=== PATIENT | male | born 1995 | race Caucasian/White ===

== ENCOUNTER 2018-04-03 04:04 | Emergency (ER) | payer OTHER ==
[~2018-04-03] VITALS: Ht 177.8 cm; Wt 65.8 kg
[~2018-04-03 04:04] MED LIST: BACTRIM DS TAB1 EACH PO; FLEXERIL PO; NOHOMEMEDICATIONS; NORCO 5-325 TA1 EACH PO; PHENERGAN 25 MG25 M1 PO; TESSALON PERLE100 MG PO; ZPAK PO
[2018-04-03 04:47] LABS: ABSOLUTE BASOPHILS 0.1 thou/uL (0.0-0.2); ABSOLUTE EOSINOPHILS 0.1 thou/uL (0.0-0.7); ABSOLUTE LYMPHOCYTES 1.5 thou/uL (0.8-5.3); ABSOLUTE MONOCYTES 0.6 thou/uL (0.0-1.2); ABSOLUTE NEUTROPHILS 6.7 thou/uL (1.6-8.1); EOSINOPHILS 1.3 %; HEMATOCRIT 49.1 % (42.0-52.0); HEMOGLOBIN 17.2 gm/dL (14.0-18.0); LYMPHOCYTES 16.7 %; MCV 88.4 fL (80.0-100.0); MONOCYTES 6.9 %; MPV 7.8 fl. (7.2-11.1); NUCLEATED RBCS 0 /100WBC; PLATELET COUNT* 229 thou/uL (150-400); POLYS 74.1 %; RBC 5.55 mil/uL (4.50-6.00); RDW-CV 12.9 % (10.5-14.5); WBC 9.1 thou/uL (4.0-11.0)
[2018-04-03 05:07] LABS: CALCIUM 8.6 mg/dL (8.5-10.1); CREATININE 0.9 mg/dL (0.6-1.3); POTASSIUM 3.2 mmol/L (3.5-5.1)
[2018-04-03 05:11] LABS: ALBUMIN 4.2 g/dL (3.4-5.0); TOTAL BILIRUBIN 0.9 mg/dL (<0.1-1.0); TOTAL PROTEIN 7.2 g/dL (6.4-8.2)
[2018-04-03] MEDS ORDERED: ONDANSETRON HCL4 M2 PO (05:44)
[2018-04-03 06:24] VITALS: BP 105/63
== END 2018-04-03 06:25 | disposition home or self-care (01) ==
LOC: M.ERS 04:04
PROVIDERS: Emergency Medicine
DX: R56.9 Unspecified convulsions (principal); R11.2 Nausea with vomiting, unspecified

== ENCOUNTER 2019-06-08 12:21 | Inpatient (IN) | payer OTHER ==
[~2019-06-08] VITALS: Ht 177.8 cm; Wt 64.8 kg
[~2019-06-08 12:21] MED LIST changes: +ONDANSETRON HCL4 M2 PO
[2019-06-08 12:30] VITALS: BP 123/79
[2019-06-08 12:55] LABS: ABSOLUTE BASOPHILS 0.1 thou/uL (0.0-0.2); ABSOLUTE EOSINOPHILS 0.2 thou/uL (0.0-0.7); ABSOLUTE LYMPHOCYTES 2.3 thou/uL (0.8-5.3); ABSOLUTE MONOCYTES 0.7 thou/uL (0.0-1.2); ABSOLUTE NEUTROPHILS 6.9 thou/uL (1.6-8.1); BASOPHILS 1.1 %; EOSINOPHILS 1.6 %; HEMATOCRIT 51.9 % (42.0-52.0); HEMOGLOBIN 18.4 gm/dL (14.0-18.0); LYMPHOCYTES 22.8 %; MCH 31.2 pg (26.0-34.0); MCHC 35.4 g/dL (28.0-37.0); MCV 88.2 fL (80.0-100.0); MONOCYTES 6.5 %; NUCLEATED RBCS 0 /100WBC; PLATELET COUNT* 286 thou/uL (150-400); RBC 5.89 mil/uL (4.50-6.00); RDW-CV 12.9 % (10.5-14.5); WBC 10.2 thou/uL (4.0-11.0)
[2019-06-08 13:04] LABS: CALCIUM 9.2 mg/dL (8.5-10.1); POTASSIUM 3.4 mmol/L (3.5-5.1)
[2019-06-08 13:17] LABS: TOTAL PROTEIN 8.1 g/dL (6.4-8.2)
[2019-06-08 13:35] LABS: APTT 25.3 Seconds (25.0-31.3); INR 1.1; PROTIME 11.4 Seconds (9.20-11.50)
[2019-06-08 14:03] LABS: URINE BILIRUBIN NEGATIVE (Negative); URINE BLOOD TRACE (Negative); URINE CLARITY CLEAR; URINE COLOR YELLOW; URINE GLUCOSE-RANDOM NEGATIVE (Negative); URINE KETONES NEGATIVE (Negative); URINE LEUKOCYTES-REFLEX NEGATIVE (Negative); URINE NITRITE-REFLEX NEGATIVE (Negative); URINE PROTEIN NEGATIVE (Negative); URINE SPECIFIC GRAVITY 1.015 (1.005-1.030); URINE UROBILINOGEN 0.2 E.U./dl (0.2-1.0)
[2019-06-08 14:10] LABS: AMP/METHAMP Negative (Negative); BARBITURATES Negative (Negative); BENZODIAZEPINES Negative (Negative); COCAINE Negative (Negative); METHADONE Negative (Negative); OPIATES Negative (Negative); PCP Negative (Negative); THC POSITIVE (Negative)
--- NOTE | 2019-06-08 14:35 | EKG ---
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1995 Requested By: Ramy York Order Number: [id number] MD: Aneesh Franklin Measurements Intervals [place] Rate: 68 P: 26 [place]: 178 QRS: 82 QRSD: 114 T: 64 QT: 394 QTc: 420 Interpretive Statements Sinus rhythm Incomplete right bundle branch block Compared to ECG 07/29/2014 13:06:36 Incomplete right bundle-branch block now present Electronically Signed On 06-08-2019 14:35:11 CDT by Aneesh Franklin [email or web address] <ELECTRONICALLY SIGNED> By: Aneesh Franklin MD, [facility] 06/08/19 1435 1248 1248 Aneesh Franklin MD, [facility] /EPI
[2019-06-08 16:00] VITALS: BP 118/72
[2019-06-08 16:04] VITALS: BP 116/60
--- NOTE | 2019-06-08 16:58 | 2DMMODE ---
[place] [address] 2 D/M-MODE ECHOCARDIOGRAM Name: KAVYA REINOSO Room: [address] IN [facility]#: [id number] Admission: 06/08/19 Attend Phys: Maximiliano Duarte Discharge: Date of : [birth year] Date of Service: 06/08/19 1658 Report #: [id number] THIS REPORT FOR: //name// APPROVED REPORT Study performed: 06/08/2019 16:12:58 EXAM: Comprehensive 2D, Doppler, and color-flow Echocardiogram Patient Location: In-Patient Room #: 200 Status: routine BSA: 1.82 HR: 65 bpm BP: 116/60 mmHg Rhythm: NSR Other Information Study Quality: Good Indications Syncope 2D Dimensions IVSd: 8.56 (7-11mm) LVOT Diam: 20.78 (18-24mm) LVDd: 43.05 mm PWd: 9.01 (7-11mm) Ascending Ao: 25.35 (22-36mm) LVDs: 26.92 (25-40mm) Aortic Root: 30.48 mm Volumes Left Atrial Volume (Systole) LA ESV Index: 25.70 mL/m2 Aortic Valve AoV Peak Ervin.: 1.19 m/s AO Peak Gr.: 5.70 mmHg LVOT Max P.77 mmHg AO Mean Gr.: 3.01 mmHg LVOT Mean P.69 mmHg LVOT Max V: 1.20 m/s AO V2 VTI: 21.95 cm LVOT Mean V: 0.75 m/s VIC (VTI): 3.64 cm2 LVOT V1 VTI: 23.55 cm Mitral Valve E/A Ratio: 2.19 MV Decel. Time: 232.06 ms MV E Max Ervin.: 0.90 m/[place] [address] 2 D/M-MODE ECHOCARDIOGRAM Name: KAVYA REINOSO Room: [address] IN .R.#: [id number] Admission: 06/08/19 Attend Phys: Maximiliano Duarte Discharge: Date of : 89 Date of Service: 06/08/19 1658 Report #: [id number] MV PHT: 67.30 ms MVA (PHT): 3.27 cm2 TDI E/Lateral E': 4.50 E/Medial E': 5.29 Medial E' Ervin.: 0.17 m/s Lateral E' Ervin.: 0.20 m/s Pulmonary Valve PV Peak Ervin.: 0.93 m/s PV Peak Gr.: 3.43 mmHg Tricuspid Valve RAP Estimate: 5.00 mmHg TR Peak Gr.: 14.05 mmHg RVSP: 19.00 mmHg PA Pressure: 19.00 mmHg Left Ventricle The left ventricle is normal size. There is normal LV segmental wall motion. There is normal left ventricular wall thickness. Left ventricular systolic function is normal. LVEF is 60-65%. The left ventricular diastolic function is normal. Right Ventricle The right ventricle is normal size. The right ventricular systolic function is normal. Atria The left atrium size is normal. The right atrium size is normal. Aortic Valve The aortic valve is normal in structure. No aortic regurgitation is present. There is no aortic valvular stenosis. Mitral Valve The mitral valve is normal in structure. There is no mitral valve regurgitation noted. No evidence of mitral valve stenosis. Tricuspid Valve The tricuspid valve is normal in structure. No pulmonary hypertension. Trace tricuspid regurgitation. Pulmonic Valve The pulmonary valve is normal in structure. [place] [address] 2 D/M-MODE ECHOCARDIOGRAM Name: KAVYA REINOSO Room: [address] IN [facility]#: [id number] Admission: 06/08/19 Attend Phys: Maximiliano Duarte Discharge: Date of : 89 Date of Service: 06/08/19 1658 Report #: [id number] Great Vessels The aortic root is normal in size. IVC is normal in size and collapses >50% with inspiration. Pericardium There is no pericardial effusion. <Conclusion> The left ventricle is normal size. There is normal left ventricular wall thickness. Left ventricular systolic function is normal. LVEF is 60-65%. The left ventricular diastolic function is normal. There is normal LV segmental wall motion. No pulmonary hypertension. Trace tricuspid regurgitation. IVC is normal in size and collapses >50% with inspiration. <ELECTRONICALLY SIGNED> By: Alberto Ahumada MD, FACC 06/08/19 1658 57 57 Alberto Ahumada MD, FACC /INF
[2019-06-08 20:00] VITALS: BP 129/72
[2019-06-08 23:53] VITALS: BP 96/54
[2019-06-09 03:45] VITALS: BP 100/51
[2019-06-09 04:44] LABS: MCH 30.4 pg (26.0-34.0); MCV 89.5 fL (80.0-100.0); MPV 7.8 fl. (7.2-11.1); RBC 5.26 mil/uL (4.50-6.00); RDW-CV 12.9 % (10.5-14.5); WBC 8.5 thou/uL (4.0-11.0)
[2019-06-09 05:11] LABS: ALBUMIN 3.7 g/dL (3.4-5.0); CALCIUM 8.6 mg/dL (8.5-10.1); CREATININE 0.9 mg/dL (0.6-1.3); POTASSIUM 4.3 mmol/L (3.5-5.1); TOTAL BILIRUBIN 0.7 mg/dL (<0.1-1.0)
[2019-06-09 08:00] VITALS: BP 113/80
[2019-06-09 08:12] VITALS: BP 113/80
--- NOTE | 2019-06-09 11:25 | EKG ---
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1995 Requested By: Maximiliano Duarte Order Number: [id number] Mable MD: Alberto Ahumada Measurements Intervals [place] Rate: 65 P: 59 [place]: 187 QRS: 88 QRSD: 113 T: 61 QT: 409 QTc: 426 Interpretive Statements Sinus rhythm Borderline intraventricular conduction delay ST elevation suggests early repolarization Compared to ECG 06/08/2019 12:48:53 ST (T wave) deviation now present Incomplete right bundle-branch block no longer present Electronically Signed On 06-09-2019 11:25:18 CDT by Alberto Ahumada [email or web address] <ELECTRONICALLY SIGNED> By: Alberto Ahumada MD, FACC 06/09/19 1125 16 16 Alberto Ahumada MD, FACC /EPI
[2019-06-09 11:40] VITALS: BP 111/65
[2019-06-09] MEDS ORDERED: IBUPROFEN 800800 M1 PO (13:07)
[2019-06-09 13:10] VITALS: BP 111/65
--- NOTE | 2019-06-09 15:24 | EKG ---
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1995 Requested By: Maximiliano Duarte Order Number: [id number] Mable MD: Alberto Ahumada Measurements Intervals [place] Rate: 55 P: 68 [place]: 166 QRS: 90 QRSD: 111 T: 71 QT: 400 QTc: 383 Interpretive Statements Sinus rhythm ST elevation, early repolarization Compared to ECG 06/08/2019 19:17:02 ST (T wave) deviation still present Electronically Signed On 06-09-2019 15:24:35 CDT by Alberto Ahumada [email or web address] <ELECTRONICALLY SIGNED> By: Alberto Ahumada MD, FACC 06/09/19 1524 1340 1340 Alberto Ahumada MD, [facility] /EPI
--- NOTE | 2019-06-10 14:24 | EEG ---
[facility] [address] [place] [address] EEG STUDY REPORT Name: KAVYA REINOSO Room: [address] IN M.R.#: [id number] Admission: 06/08/19 Attend Phys: Shereen Slade Discharge: 06/09/19 Date of : [birth year] Report #: [id number] THIS REPORT FOR: //name// CC: JASMIN physician/PCP Maximiliano Duarte DATE OF SERVICE: 06/08/2019 This patient is being evaluated for an episode of syncope. EEG was done by placing the electrode by standard 10-20 system of electrode placement. Both referential and sequential montages were used for recording. Background activity in this patient's EEG is about 11 Hz and 30 microvolt. Large portion of this patient's EEG was obtained when the patient was asleep. That is associated with bilaterally symmetrical sleep spindle and vertex sharp waves. Throughout the record, no active epileptiform activity was noticed. Photic stimulation was unremarkable. IMPRESSION: This patient's EEG was unremarkable. It might be mentioned that EEG can be normal in a significant percentage of patient with a seizure disorder. If clinically doubt exist about seizure disorder, then the patient will need further workup including prolonged EEG, video monitored EEG, etc., depending upon his condition. Thank you very much for this referral. <ELECTRONICALLY SIGNED> By: Marc Nice MD 06/10/19 1424 1122 [id number] Nice MD /michelle
== END 2019-06-09 14:30 | disposition home or self-care (01) | DRG 312 ==
LOC: M.ERS 12:21 → M.TBA-ER 14:11 → M.2W 15:56
PROVIDERS: Physician Assistant; ADMIT Internal Medicine
DX: R55 Syncope and collapse (principal); Z86.14 Personal history of Methicillin resistant Staphylococcus aureus infection; F17.210 Nicotine dependence, cigarettes, uncomplicated; I45.10 Unspecified right bundle-branch block; F12.90 Cannabis use, unspecified, uncomplicated; E87.6 Hypokalemia

== ENCOUNTER 2020-03-02 17:36 | Emergency (ER) | payer OTHER ==
[~2020-03-02] VITALS: Ht 175.3 cm; Wt 63.5 kg
[~2020-03-02 17:36] MED LIST changes: +IBUPROFEN 800800 M1 PO
[2020-03-02] MEDS ORDERED: KEFLEX500 M1 PO (19:12)
[2020-03-02 19:24] VITALS: BP 130/69
== END 2020-03-02 19:24 | disposition home or self-care (01) ==
LOC: M.ERS 17:36
DX: S51.842A Puncture wound with foreign body of left forearm, initial encounter (principal); F17.210 Nicotine dependence, cigarettes, uncomplicated; Z86.14 Personal history of Methicillin resistant Staphylococcus aureus infection; X58.XXXA Exposure to other specified factors, initial encounter; Y93.89 Activity, other specified; Y92.89 Other specified places as the place of occurrence of the external cause; Y99.0 Civilian activity done for income or pay

== ENCOUNTER 2020-12-20 04:30 | Emergency (ER) | payer OTHER ==
[~2020-12-20] VITALS: Ht 177.8 cm; Wt 63.5 kg
[~2020-12-20 04:30] MED LIST changes: +KEFLEX500 M1 PO
[2020-12-20] MEDS ORDERED: PROMETHAZINE-C473 ML PO (05:23)
[2020-12-20] MEDS ORDERED: AUGMENTIN600 MG/5 M PO (05:23)
[2020-12-20 05:32] VITALS: BP 105/68
== END 2020-12-20 05:33 | disposition home or self-care (01) ==
LOC: M.ERS 04:30
DX: J03.00 Acute streptococcal tonsillitis, unspecified (principal); Z86.14 Personal history of Methicillin resistant Staphylococcus aureus infection

== ENCOUNTER 2021-03-18 08:34 | Emergency (ER) | payer OTHER ==
[~2021-03-18] VITALS: Ht 177.8 cm; Wt 63.5 kg
[~2021-03-18 08:34] MED LIST changes: +AUGMENTIN600 MG/5 M PO; +PROMETHAZINE-C473 ML PO
[2021-03-18 13:30] VITALS: BP 124/96
== END 2021-03-18 13:30 | disposition home or self-care (01) ==
LOC: M.ERS 08:34
DX: S02.81XA Fracture of other specified skull and facial bones, right side, initial encounter for closed fracture (principal); R55 Syncope and collapse; W18.39XA Other fall on same level, initial encounter; Y93.89 Activity, other specified; Y92.89 Other specified places as the place of occurrence of the external cause; Y99.8 Other external cause status